=== PATIENT | male | born 1950 ===

== ENCOUNTER 2017-12-21 16:33 | Observation (INO) | payer MEDICAID, OTHER ==
[2017-12-21] MEDS ORDERED: Tdap Vaccine 0.5 ml Vial (10-64 yrs) IM ONE ×2 (17:06→18:35)
[2017-12-21] MEDS ORDERED: ceFAZolin 1 GM in Sodium Chloride 0.9% 100 ML IVPB ONE (17:06)
--- NOTE | 2017-12-21 17:11 | ED PDOC ---
Upper Extremity Pain/Injury Time Seen by Provider: 12/21/17 17:08 Chief Complaint (Nursing): Finger,Hand,&Wrist Chief Complaint (Provider): HAND INJURY History Per: Patient (67 Y/O MALE HERE FOR EVALUATION OF LEFT HAND INJURY THAT OCCURRED WHEN HE TRIPPED AND FELL EARLIER TODAY WHILE TRYING TO CATCH THE BUS. NOTES HE TRIPPED ON HAND WITH SIDE OF HEAD STRIKING EDGE OF GLASSES. NO LOC. IS NOT ON ANTICOAGULANTS. IS RIGHT HAND DOMINANT.) Past Medical History Reviewed: Historical Data, Nursing Documentation, Vital Signs Vital Signs: Last Vital Signs Temp 98.0 F 12/21/17 16:38 Pulse 99 H 12/21/17 16:38 Resp 20 12/21/17 16:38 BP 146/102 H 12/21/17 16:38 Pulse Ox 95 12/21/17 16:38 - Family History Family History: States: No Known Family Hx - Allergies Allergies/Adverse Reactions: Allergies Allergy/AdvReac Type Severity Reaction Status Date / Time No Known Allergies Allergy Verified 12/21/17 16:38 Review of Systems ROS Statement: Except As Marked, All Systems Reviewed And Found Negative Physical Exam - Reviewed Nursing Documentation Reviewed: Yes Vital Signs Reviewed: Yes - Physical Exam Appears: Positive for: Well, Non-toxic, No Acute Distress Head Exam: Positive for: ATRAUMATIC, NORMAL INSPECTION, NORMOCEPHALIC Skin: Positive for: Normal Color, Warm, DRY Eye Exam: Positive for: EOMI, Normal appearance, PERRL ENT: Positive for: Normal ENT Inspection Neck: Positive for: Normal, Painless ROM Cardiovascular/Chest: Positive for: Regular Rate, Rhythm Respiratory: Positive for: CNT, Normal Breath Sounds Gastrointestinal/Abdominal: Positive for: Normal Exam, Soft Back: Positive for: Normal Inspection Extremity: Positive for: Normal ROM, Other (DEEP 4.0 CM LACERATION NOTED ULNAR ASPECT OF LEFT HAND. ABLE TO FLEX AT DIP/PIP.) Neurologic/Psych: Positive for: Alert, Oriented - Laboratory Results Result Diagrams: 12/21/17 17:30 12/21/17 17:30 - ECG O2 Sat by Pulse Oximetry: 95 - Progress ED Course And Treament: ANCEF 1 GM IV X 1 DOSE; TDAP 0.5ML IM X 1 DOSE xry of hand: fx of proximal phalanx displaced. D/W DR. MARSHALL 17:48. PATIENT TO GO TO OR FOR REDUCTION/REPAIR. D/W HOSPITALIST DR DOOLEY FOR ADMISSION. d/w surgical brace maker. Disposition - Clinical Impression Clinical Impression: Open displaced fracture of proximal phalanx of finger of left hand - Patient ED Disposition Is Patient to be Admitted: Yes - Disposition Disposition Time: 17:54 Condition: FAIR - Pt Status Changed To: Hospital Disposition Of: Observation
[2017-12-21 17:41] LABS: BASO # 0.1 K/uL (0.0-0.2); EOS # 0.2 K/uL (0.0-0.7); EOS % 3.8 % (0.0-4.0); HEMOGLOBIN 14.2 g/dL (12.0-18.0); LYMPH # 1.6 K/uL (1.0-4.3); MEAN CELL VOLUME 84.5 fl (80.0-94.0); MEAN CORPUSCULAR HEMOGLOBIN 29.1 pg (27.0-31.0); MEAN CORPUSCULAR HGB CONC 34.5 g/dL (33.0-37.0); MEAN PLATELET VOLUME 7.9 fl (7.2-11.7); MONO # 0.7 K/uL (0.0-0.8); MONO % 11.5 % (0.0-10.0); NEUT # 3.5 K/uL (1.8-7.0); NEUT % 57.7 % (50.0-75.0); NRBC % 0.1 % (0.0-0.0); RBC 4.88 Mil/uL (4.40-5.90); RED CELL DISTRIBUTION WIDTH 13.9 % (11.5-14.5)
[2017-12-21 17:47] LABS: BLOOD UREA NITROGEN 16 mg/dl (9-20); CALCIUM 8.9 mg/dL (8.4-10.2); GFR AFRICAN-AMERICAN > 60; GFR NON-AFRICAN AMERICAN > 60
--- NOTE | 2017-12-21 18:07 | CT ---
PROCEDURE: CT HEAD WITHOUT CONTRAST. HISTORY: HEAD INJURY COMPARISON: None available. TECHNIQUE: Axial computed tomography images were obtained through the head/brain without intravenous contrast. Coronal and sagittal reconstructed images. Radiation dose: Total exam DLP = 776.81 mGy-cm. This CT exam was performed using one or more of the following dose reduction techniques: Automated exposure control, adjustment of the mA and/or kV according to patient size, and/or use of iterative reconstruction technique. FINDINGS: HEMORRHAGE: No intracranial hemorrhage. BRAIN: No mass effect or edema. No atrophy or chronic microvascular ischemic changes. Physiologic basal ganglia details lesions VENTRICLES: Unremarkable. No hydrocephalus. CALVARIUM: Unremarkable. PARANASAL SINUSES: Mild, chronic ethmoid air cell disease. MASTOID AIR CELLS: Unremarkable as visualized. No inflammatory changes. OTHER FINDINGS: None. IMPRESSION: No acute intracranial abnormalities. No significant findings to account for the clinical presentation.
[2017-12-21 18:09] LABS: INR 1.1 (0.9-1.2); PARTIAL THROMBOPLASTIN TIME 32.6 Seconds (25.6-37.1); PROTHROMBIN TIME 11.8 Seconds (9.8-13.1)
--- NOTE | 2017-12-21 18:13 | CP.PCM.HP ---
History of Present Illness - History of Present Illness History of Present Illness: 67 yo male with no significant PMH injured left hand when he tripped and fell trying to catch a bus around 4pm today. Patient sustained laceration proximal to the left 5th finger. There was no LOC. Present on Admission - Present on Admission Any Indicators Present on Admission: No History of DVT/PE: No History of Uncontrolled Diabetes: No Urinary Catheter: No Decubitus Ulcer Present: No Review of Systems - Review of Systems All systems: reviewed and no additional remarkable complaints except (aside from those mentioned above, 12 point system review were negative by me) Past Patient History - Tetanus Immunizations Tetanus Immunization: Unknown - Past Medical History & Family History Past Medical History?: No Past Family History: Reviewed and not pertinent Meds Allergies/Adverse Reactions: Allergies Allergy/AdvReac Type Severity Reaction Status Date / Time No Known Allergies Allergy Verified 12/21/17 16:38 Physical Exam - Constitutional Appears: No Acute Distress - Head Exam Head Exam: ATRAUMATIC - Eye Exam Eye Exam: absent: Scleral icterus - ENT Exam ENT Exam: Mucous Membranes Moist - Neck Exam Neck exam: Negative for: Meningismus - Respiratory Exam Respiratory Exam: absent: Rales, Rhonchi, Wheezes, Respiratory Distress - Cardiovascular Exam Cardiovascular Exam: REGULAR RHYTHM, +S1, +S2 - GI/Abdominal Exam GI & Abdominal Exam: Soft. absent: Tenderness - Rectal Exam Rectal Exam: Deferred - Extremities Exam Extremities exam: Negative for: normal inspection (left hand: large laceration just proximal to the 5th finger) - Back Exam Back exam: NORMAL INSPECTION - Neurological Exam Neurological exam: Alert, Oriented x3 - Psychiatric Exam Psychiatric exam: Normal Affect - Skin Skin Exam: Normal Color Results - Vital Signs Recent Vital Signs: Last Vital Signs Temp 98.0 F 12/21/17 16:38 Pulse 99 H 12/21/17 16:38 Resp 20 12/21/17 16:38 BP 146/102 H 12/21/17 16:38 Pulse Ox 95 12/21/17 17:54 - Labs Result Diagrams: 12/21/17 17:30 12/21/17 17:30 Labs: Laboratory Results - last 24 hr 12/21/17 12/21/17 12/21/17 17:30 17:30 17:30 WBC 6.0 RBC 4.88 Hgb 14.2 Hct 41.2 MCV 84.5 MCH 29.1 MCHC 34.5 RDW 13.9 Plt Count 257 MPV 7.9 Neut % (Auto) 57.7 Lymph % (Auto) 26.0 [place] % (Auto) 11.5 H Eos % (Auto) 3.8 Baso % (Auto) 1.0 Neut # (Auto) 3.5 Lymph # (Auto) 1.6 [place] # (Auto) 0.7 Eos # (Auto) 0.2 Baso # (Auto) 0.1 PT 11.8 INR 1.1 APTT 32.6 Sodium 143 Potassium 4.0 Chloride 104 Carbon Dioxide 24 Anion Gap 19 BUN 16 Creatinine 0.8 Est GFR ( Amer) > 60 Est GFR (Non-Af Amer) > 60 Random Glucose 100 Calcium 8.9 Assessment & Plan (1) Open displaced fracture of proximal phalanx of finger of left hand Status: Acute - Assessment and Plan (Free Text) Assessment: for ORIF today by Dr Murphy (called by ER) Ancef 1gm IV q8hrs IV hydration with NSS 100cc/hr Morphine 2mg IV q 4hrs prn
[2017-12-21] MEDS ORDERED: Morphine 4 MG/ML VIAL ONE (18:34)
--- NOTE | 2017-12-21 19:07 | CP.PCM.CON ---
History of Present Illness - History of Present Illness History of Present Illness: SURGERY CONSULT NOTE FOR DR. MARSHALL 67M presents after falling down on concrete while running for bus. He presents with laceration in the left hand and an open fracture. Fracture is located in the left 5th digit proximal phalanx. He states pain is mild and denies loss of sensation or motor function. Patient denies loss of consciousness, headache, chest pain, shortness of breath or pain anywhere else. PMH: denies PSH: denies Social: admits to 3 cigarretes/day, social alcohol use, denies illicit drugs Allergies: NKDA Past Patient History - Tetanus Immunizations Tetanus Immunization: Unknown - Past Medical History & Family History Past Medical History?: No Past Family History: Reviewed and not pertinent Meds Allergies/Adverse Reactions: Allergies Allergy/AdvReac Type Severity Reaction Status Date / Time No Known Allergies Allergy Verified 12/21/17 16:38 - Medications Medications: Current Medications Cefazolin Sodium 1 gm/ Sodium (Chloride) 100 mls @ 100 mls/hr IVPB Q12 MICHELLE PRN Reason: Protocol Morphine Sulfate (Morphine) 2 mg IVP Q4 PRN PRN Reason: Pain, moderate (4-7) Physical Exam - Constitutional Appears: Well, Non-toxic, No Acute Distress - Head Exam Head Exam: ATRAUMATIC - Eye Exam Eye Exam: EOMI, PERRL - ENT Exam ENT Exam: Mucous Membranes Moist - Respiratory Exam Respiratory Exam: Clear to Auscultation Bilateral, NORMAL BREATHING PATTERN - Cardiovascular Exam Cardiovascular Exam: REGULAR RHYTHM, +S1, +S2 - GI/Abdominal Exam GI & Abdominal Exam: Soft. absent: Distended, Firm, Guarding, Rebound, Rigid, Tenderness - Extremities Exam Additional comments: Laceration of palmar aspect of left hand in the proximal 5th digit measuring 3- 4cm. Open fracture in left hand - left 5th digit proximal phalanx - Neurological Exam Neurological exam: Alert, Oriented x3 - Psychiatric Exam Psychiatric exam: Normal Affect, Normal Mood - Skin Skin Exam: Dry, Intact, Normal Color, Warm Results - Vital Signs Recent Vital Signs: Last Vital Signs Temp 98.0 F 12/21/17 16:38 Pulse 99 H 12/21/17 16:38 Resp 20 12/21/17 16:38 BP 146/102 H 12/21/17 16:38 Pulse Ox 95 12/21/17 17:54 - Labs Result Diagrams: 12/21/17 17:30 12/21/17 17:30 Labs: Laboratory Results - last 24 hr 12/21/17 12/21/17 12/21/17 17:30 17:30 17:30 WBC 6.0 RBC 4.88 Hgb 14.2 Hct 41.2 MCV 84.5 MCH 29.1 MCHC 34.5 RDW 13.9 Plt Count 257 MPV 7.9 Neut % (Auto) 57.7 Lymph % (Auto) 26.0 Lane % (Auto) 11.5 H Eos % (Auto) 3.8 Baso % (Auto) 1.0 Neut # (Auto) 3.5 Lymph # (Auto) 1.6 Lane # (Auto) 0.7 Eos # (Auto) 0.2 Baso # (Auto) 0.1 PT 11.8 INR 1.1 APTT 32.6 Sodium 143 Potassium 4.0 Chloride 104 Carbon Dioxide 24 Anion Gap 19 BUN 16 Creatinine 0.8 Est GFR ( Amer) > 60 Est GFR (Non-Af Amer) > 60 Random Glucose 100 Calcium 8.9 Blood Type Antibody Screen BBK History Checked 12/21/17 17:30 WBC RBC Hgb Hct MCV MCH MCHC RDW Plt Count MPV Neut % (Auto) Lymph % (Auto) Lane % (Auto) Eos % (Auto) Baso % (Auto) Neut # (Auto) Lymph # (Auto) Lane # (Auto) Eos # (Auto) Baso # (Auto) PT INR APTT Sodium Potassium Chloride Carbon Dioxide Anion Gap BUN Creatinine Est GFR ( Amer) Est GFR (Non-Af Amer) Random Glucose Calcium Blood Type O POSITIVE Antibody Screen Negative BBK History Checked No verified bt Assessment & Plan - Assessment and Plan (Free Text) Assessment: 67M present s/p trauma with open fracture of left 5th digit proximal phalanx Plan: - Abx - Pain control - Plan for OR Further recs discuss with Dr. Jeffrey Olivarez, PGY2
[2017-12-21] MEDS: Morphine 4 MG/ML VIAL IVP PRN (20:43)
[2017-12-21] MEDS: ceFAZolin 1 GM in Sodium Chloride 0.9% 100 ML IVPB SCH (21:55)
[2017-12-21] MEDS: Dextrose 5%/0.9% NS 1,000 ML IV SCH (21:55)
[2017-12-22] MEDS: Morphine 4 MG/ML VIAL IVP PRN ×2 (03:42→13:56)
--- NOTE | 2017-12-22 07:59 | RAD ---
PROCEDURE: Left Hand Radiographs. HISTORY: HAND FRACTURE COMPARISON: None. FINDINGS: BONES: There is an oblique fracture through the mid diaphysis of the proximal phalanx left small finger with proximal distraction of the major distal fracture fragment and lateral angulation of the distal fragment. No dislocation or subluxation. No additional fracture throughout the left hand. Limited local soft tissue edema is seen at the fracture site. JOINTS: As above. SOFT TISSUES: As above. OTHER FINDINGS: None. IMPRESSION: Oblique teloscoped fracture proximal phalanx left small finger without dislocation.
[2017-12-22] MEDS: Dextrose 5%/0.9% NS 1,000 ML IV SCH (08:02)
[2017-12-22] MEDS: ceFAZolin 1 GM in Sodium Chloride 0.9% 100 ML IVPB SCH (08:09)
--- NOTE | 2017-12-22 08:23 | RAD ---
PROCEDURE: CHEST RADIOGRAPH, 1 VIEW HISTORY: pre-op COMPARISON: None available. FINDINGS: LUNGS: No definite infiltrates are identified bilaterally. PLEURA: No pneumothorax or pleural fluid seen. CARDIOVASCULAR: Cardiac size appears upper limits normal. There is mild pulmonary vascular congestion suspected. OSSEOUS STRUCTURES: No significant abnormalities. VISUALIZED UPPER ABDOMEN: Normal. OTHER FINDINGS: None. IMPRESSION: Borderline CHF. No acute infiltrates or pleural effusion bilaterally.
[2017-12-22] MEDS ORDERED: Propofol 10 mg/ml Inj (20 ML) ONE (08:35)
[2017-12-22] MEDS ORDERED: Midazolam 2 MG/2 ML VIAL ONE ×2 (08:35→09:14)
[2017-12-22] MEDS ORDERED: Bacitracin Ointment 30 GM TUBE ONE (08:38)
[2017-12-22] MEDS: Lidocaine 2% Inj (20ml) ONE ×2 (08:40→09:40)
[2017-12-22] MEDS: Bupivacaine HCl 0.25% PF (30 ml) Inj ONE ×2 (08:40→09:40)
[2017-12-22] MEDS ORDERED: Lactated Ringer's 1,000 ML IV ONE (10:05)
[2017-12-22] MEDS ORDERED: HYDROmorphone 0.5 mg/0.5 ml ISec IVP PRN (10:06)
[2017-12-22 11:12] VITALS: O2SAT 97
[2017-12-22 11:37] VITALS: TEMP 97.5
--- NOTE | 2017-12-22 11:39 | CP.PCM.DIS ---
Provider - Provider Date of Admission: 12/21/17 17:50 Attending physician: Austin Trent MD Consults: Hand Surgery : Dr Adeel Murphy Time Spent in preparation of Discharge (in minutes): 25 Diagnosis - Discharge Diagnosis (1) Open displaced fracture of proximal phalanx of finger of left hand Status: Acute (2) S/P ORIF (open reduction internal fixation) fracture Status: Acute Hospital Course - Lab Results Lab Results: Most Recent Lab Values WBC 6.0 K/uL (4.8-10.8) 12/21/17 17:30 RBC 4.88 Mil/uL (4.40-5.90) 12/21/17 17:30 Hgb 14.2 g/dL (12.0-18.0) 12/21/17 17:30 Hct 41.2 % (35.0-51.0) 12/21/17 17:30 MCV 84.5 fl (80.0-94.0) 12/21/17 17:30 MCH 29.1 pg (27.0-31.0) 12/21/17 17:30 MCHC 34.5 g/dL (33.0-37.0) 12/21/17 17:30 RDW 13.9 % (11.5-14.5) 12/21/17 17:30 Plt Count 257 K/uL (130-400) 12/21/17 17:30 MPV 7.9 fl (7.2-11.7) 12/21/17 17:30 Neut % (Auto) 57.7 % (50.0-75.0) 12/21/17 17:30 Lymph % (Auto) 26.0 % (20.0-40.0) 12/21/17 17:30 [place] % (Auto) 11.5 % (0.0-10.0) H 12/21/17 17:30 Eos % (Auto) 3.8 % (0.0-4.0) 12/21/17 17:30 Baso % (Auto) 1.0 % (0.0-2.0) 12/21/17 17:30 Neut # (Auto) 3.5 K/uL (1.8-7.0) 12/21/17 17:30 Lymph # (Auto) 1.6 K/uL (1.0-4.3) 12/21/17 17:30 [place] # (Auto) 0.7 K/uL (0.0-0.8) 12/21/17 17:30 Eos # (Auto) 0.2 K/uL (0.0-0.7) 12/21/17 17:30 Baso # (Auto) 0.1 K/uL (0.0-0.2) 12/21/17 17:30 PT 11.8 Seconds (9.8-13.1) 12/21/17 17:30 INR 1.1 (0.9-1.2) 12/21/17 17:30 APTT 32.6 Seconds (25.6-37.1) 12/21/17 17:30 Sodium 143 mmol/l (132-148) 12/21/17 17:30 Potassium 4.0 MMOL/L (3.6-5.0) 12/21/17 17:30 Chloride 104 mmol/L (98-107) 12/21/17 17:30 Carbon Dioxide 24 mmol/L (22-30) 12/21/17 17:30 Anion Gap 19 (10-20) 12/21/17 17:30 BUN 16 mg/dl (9-20) 12/21/17 17:30 Creatinine 0.8 mg/dl (0.8-1.5) 12/21/17 17:30 Est GFR ( Amer) > 60 12/21/17 17:30 Est GFR (Non-Af Amer) > 60 12/21/17 17:30 Random Glucose 100 mg/dL (75-110) 12/21/17 17:30 Calcium 8.9 mg/dL (8.4-10.2) 12/21/17 17:30 Blood Type O POSITIVE 12/21/17 17:30 Antibody Screen Negative 12/21/17 17:30 BBK History Checked No verified bt 12/21/17 17:30 - Hospital Course Hospital Course: 67 yo male with no significant PMH, injured his left hand when he tripped and fell trying to catch a bus . Patient sustained fracture and laceration proximal to the left 5th finger. There was no head trauma. Denies pain in any part of his body Hand Xray:Oblique teloscoped fracture proximal phalanx left small finger without dislocation. CT of Head: negative. 1. Open Fracture Left 5th digit s/p ORIF with K Wire - Hand Surgery consulted: Dr Murphy - Pain mgt - keep left hand elevated to decrease swelling - will d/c pt home - pt to ff up with Dr Murphy as outpt - Keflex PO Discharge Exam - Head Exam Head Exam: ATRAUMATIC, NORMAL INSPECTION, NORMOCEPHALIC - Eye Exam Eye Exam: EOMI, Normal appearance, PERRL Pupil Exam: NORMAL ACCOMODATION - ENT Exam ENT Exam: Mucous Membranes Moist, Normal External Ear Exam - Neck Exam Neck exam: Full Rom - Respiratory Exam Respiratory Exam: NORMAL BREATHING PATTERN. absent: Respiratory Distress - Cardiovascular Exam Cardiovascular Exam: REGULAR RHYTHM, +S1, +S2 - GI/Abdominal Exam GI & Abdominal Exam: Normal Bowel Sounds, Soft. absent: Tenderness - Extremities Exam Extremities exam: full ROM, normal capillary refill, pedal pulses present Additional comments: left hand with dressing - Back Exam Back exam: FULL ROM. absent: CVA tenderness (L), CVA tenderness (R), vertebral tenderness - Neurological Exam Neurological exam: Alert, CN II-XII Intact, Normal Gait, Oriented x3, Reflexes Normal - Psychiatric Exam Psychiatric exam: Normal Affect, Normal Mood - Skin Skin Exam: Dry, Normal Color, Warm Discharge Plan - Discharge Medications Prescriptions: Cephalexin [Keflex] 500 mg PO TID #1 capsule Oxycodone HCl/Acetaminophen [Percocet 10-325 mg Tablet] 1 each PO Q4 PRN #1 tablet PRN Reason: Pain, Moderate (4-7) - Follow Up Plan Condition: GOOD Disposition: HOME/ ROUTINE Instructions: Finger Fracture (DC) Additional Instructions: ff up [facility] in 1-[address] Murphy in 1 wk Keep splint on. Take pain med as needed. Referrals: [facility] [Outside] Adeel Murphy MD [Staff Provider] -
--- NOTE | 2017-12-22 13:49 | PCM.SURG1 ---
Surgeon's Initial Post Op Note - Surgeon's Notes Surgeon: Dr. Murphy Fire Equipment Repairer Inspector: Dania Dawson PGY2 Type of Anesthesia: Block Regional, IV Sedation Pre-Operative Diagnosis: L 5th digit fracture Operative Findings: 4x1cm laceration of L 5th digit. 5th digit fracture. Post-Operative Diagnosis: Same Operation Performed: Open reduction and fixation with K wire. Specimen/Specimens Removed: None Estimated Blood Loss: EBL {In ML}: 20 Blood Products Given: N/A Drains Used: No Drains Post-Op Condition: Good Date of Surgery/Procedure: 12/22/17 Time of Surgery/Procedure: 13:57
[2017-12-22 14:09] VITALS: BP 119/64; PULSE 20; RESP 65
--- NOTE | 2017-12-25 12:13 | CARD ---
APPROVED REPORT EKG Measurement Heart [id number] <Conclusion> Normal sinus rhythm Normal ECG
--- NOTE | 2018-01-08 08:31 | OP ---
PGUROCEDURE DATE: 12/22/2017 LOCATION: [facility]. PREOPERATIVE DIAGNOSES: 1. Open fracture proximal phalanx left fifth finger. 2. Compact open wound of left fifth finger. POSTOPERATIVE DIAGNOSES: 1. Open fracture proximal phalanx left fifth finger. 2. Compact open wound of left fifth finger. PROCEDURE: 1. Management of proximal phalangeal fracture. 2. Insertion of K-wire proximal phalanx. 3. Repair of complex laceration of finger. SURGEON: Adeel Murphy MD INFORMATION TECHNOLOGY MANAGER: Dania Dawson DO CLINICAL NOTE: This 67-year-old male presented to the [facility] Emergency Room on 12/21/2017 after falling and crushing the little finger of his left hand. This was essentially injury, which cause in an extremely erratic and complex manner. On x-ray, the patient had displaced fracture of proximal phalanx. On examination, there was also a complex skin laceration of approximately 3 cm overlying the volar aspect of the proximal phalanx and extending into the . Because management of this injury of the Emergency Room Department, a Plastic Surgery consult was called. The nature of the injury and proposed repair was outlined to the patient. Informed consent outlining the potential risks of failure and complications related to the proposed surgical repair was obtained prior to repair of this injury. No guarantee of outcome was provided to the patient. DESCRIPTION OF PROCEDURE: The patient was commenced on intravenous antibiotics prior to surgery. The patient was taken to the operating room as an emergency in the morning following admission. After sedation was induced, local anesthesia was obtained with digital ring block using lidocaine . After an adequate level of anesthesia was obtained, the open wound of the volar surface of the finger fracture site was thoroughly irrigated and areas of skin debrided as necessary. The fracture of the proximal phalanx was then examined under fluoroscopy. The distal segment of the phalanx and volar within the proximal phalanx and displaced the flexor tendon. The wound was extended to allow thorough examination of the fracture site. of the finger of the distal fracture segment was reduced and repositioned. The flexor tendons were examined and found to be intact. Under fluoroscopy, a K-wire was inserted longitudinally through the fracture site. The open skin wounds were then reapproximated and repaired with multiple sutures of 4-0 Prolene and 5-0 catgut. The finger was splinted with an ulnar gutter splint to protect the fracture site of the proximal phalanx. The wounds were then dressed in the usual manner and the patient was given discharge instructions to follow up in the office within the week and not to remove the dressing or the splint. He was also given a prescription for Percocet for pain relief and Keflex for antibiotic coverage. Adeel Murphy MD
== END 2017-12-22 14:32 | disposition home or self-care (01) ==
LOC: H.ER 16:33 → H.ERHOLD 17:50 → INTOOBSV 17:50 → H.MEDSURG1 20:24
DX: S62.617B Displaced fracture of proximal phalanx of left little finger, initial encounter for open fracture (principal); W01.110A Fall on same level from slipping, tripping and stumbling with subsequent striking against sharp glass, initial encounter; Z23 Encounter for immunization; Y93.02 Activity, running; Y92.480 Sidewalk as the place of occurrence of the external cause
CPT/HCPCS: 13132; 26735; 70450; 71045; 73130; 80048; 85025; 85610; 85730; 86850; 86900; 90471; 90715; 93005; 96365; 96366; 96375; 96376; 99284; G0378; J0690; J2001; J2250; J2270; J2704; J3010; J7030; J7042; J7120

== ENCOUNTER 2017-12-24 11:52 | Emergency (ER) | payer MEDICAID, OTHER ==
[2017-12-24 12:02] VITALS: O2SAT 99
[2017-12-24 12:03] VITALS: BMI 28.4
--- NOTE | 2017-12-24 12:48 | ED PDOC ---
Upper Extremity Pain/Injury Time Seen by Provider: 12/24/17 12:17 Chief Complaint (Nursing): Finger,Hand,&Wrist Chief Complaint (Provider): Left Hand Swelling History Per: Patient History/Exam Limitations: no limitations Onset/Duration Of Symptoms: Days (x2) Current Symptoms Are (Timing): Still Present Additional Complaint(s): 67 y/o right hand dominant male with no significant pmhx, who presents to the ED for evaluation of left hand swelling x2 days. Patient reports he had an open fracture of the proximal 5th phalange and went to the OR with Dr. Muprhy 3 days ago. Patient is currently reporting minimal pain. PMD: None provided Past Medical History Reviewed: Historical Data Vital Signs: Last Vital Signs Temp 97 F L 12/24/17 12:02 Pulse 70 12/24/17 12:02 Resp 16 12/24/17 12:08 BP 150/87 12/24/17 12:02 Pulse Ox 99 12/24/17 12:02 - Medical History PMH: No Chronic Diseases Denies: Chronic Kidney Disease - Surgical History Other surgeries: Left 5th finger fracture - Family History Family History: States: Unknown Family Hx - Home Medications Home Medications: Ambulatory Orders Medication Instructions Recorded Cephalexin [Keflex] 500 mg PO TID #1 capsule 12/22/17 Oxycodone HCl/Acetaminophen 1 each PO Q4 PRN #1 tablet 12/22/17 [Percocet 10-325 mg Tablet] - Allergies Allergies/Adverse Reactions: Allergies Allergy/AdvReac Type Severity Reaction Status Date / Time No Known Allergies Allergy Verified 12/24/17 12:08 Review of Systems ROS Statement: Except As Marked, All Systems Reviewed And Found Negative Musculoskeletal: Positive for: Hand Pain (left) Physical Exam - Reviewed Nursing Documentation Reviewed: Yes Vital Signs Reviewed: Yes - Physical Exam Appears: Positive for: Non-toxic, No Acute Distress Head Exam: Positive for: ATRAUMATIC, NORMAL INSPECTION, NORMOCEPHALIC Skin: Positive for: Normal Color Eye Exam: Positive for: Normal appearance Neck: Positive for: Normal, Painless ROM Respiratory: Negative for: Respiratory Distress Extremity: Positive for: Capillary Refill (less than 2 seconds), Swelling (1st, 2nd, 3rd digits of left hand), Other (left hand splint kept in place, sensation intact to left hand) Neurologic/Psych: Positive for: Alert. Negative for: Motor/Sensory Deficits - ECG O2 Sat by Pulse Oximetry: 99 (RA) Pulse Ox Interpretation: Normal Medical Decision Making Medical Decision Makin:[address] Murphy who said Dr. Dawson, certified surgical tech/first assistant, will come see the patient. Called Dr. Dawson who reported she will come see the patient after she finishes seeing her current patient. PT was seen and examined by Dr. Dawson. Pts splint replaced and sling given. Scribe Attestation: Documented by Dennis Fuentes, acting as a scribe for Samantha Hayden PA-C. Provider Scribe Attestation: All medical record entries made by the Scribe were at my direction and personally dictated by me. I have reviewed the chart and agree that the record accurately reflects my personal performance of the history, physical exam, medical decision making, and the department course for this patient. I have also personally directed, reviewed, and agree with the discharge instructions and disposition. Disposition - Clinical Impression Clinical Impression: Hand swelling - Patient ED Disposition Is Patient to be Admitted: No - Disposition Referrals: Adeel Murphy MD [Staff Provider] - Disposition: Routine/Home Disposition Time: 13:30 Condition: STABLE Additional Instructions: Please follow-up with Dr. Murphy. Instructions: Swelling Forms: [facility] (Syriac)
[2017-12-24 13:43] VITALS: BP 135/82; PULSE 65; RESP 15; TEMP 98.2
--- NOTE | 2017-12-24 14:13 | CP.PCM.PN ---
Subjective - Date & Time of Evaluation Date of Evaluation: 12/24/17 Time of Evaluation: 14:08 - Subjective Subjective: 67M who underwent ORIF of left hand fifth digit proximal phalanx open fracture on 12/[address] Murphy seen in ED complaining of discomfort to his hand. He states that the discomfort has been bothering him for about one day and describes it as a pulsing sensation more than pain. He says that his pain is well controlled and is only a 4/10 today. He denies elevating his hand over the last 24 hours. Denies any recent trauma to the hand since surgery. Patient is AAO x 3 and NAD at time of examination. Denies any further complaints. Denies any tingling or numbness to his left hand or digits. Denies any further complaints at this time. Denies any recent N/V/F/C/CP/SOB/D Objective - Vital Signs/Intake and Output Vital Signs (last 24 hours): Temp Pulse Resp BP Pulse Ox 98.2 F 65 15 135/82 99 12/24/17 13:41 12/24/17 13:41 12/24/17 13:41 12/24/17 13:41 12/24/17 13:41 - Constitutional Appears: Well, Non-toxic, No Acute Distress - Head Exam Head Exam: ATRAUMATIC, NORMOCEPHALIC - Respiratory Exam Respiratory Exam: NORMAL BREATHING PATTERN. absent: Respiratory Distress - Extremities Exam Additional comments: Finger splint on left hand noted to be C/D/I Pulses to hand 2/4 CFT < 3 seconds Skin temperature warm WNL Epicritic and protective sensation intact Assessment and Plan - Assessment and Plan (Free Text) Assessment: 67M who underwent ORIF of left hand fifth digit proximal phalanx open fracture on 12/[address] Murphy seen in ED for tight dressing causing discomfort to his hand Plan: Coban removed from patient's dressing and replaced with RAULITO wrap Pt instructed to elevate hand if pulsing sensation continues Patient instructed to return to ED if he experiences any tingling or numbness to digits or if he notices skin color/temperature changes Patient to f/u with Dr. Murphy at his regularly scheduled appointment
== END 2017-12-24 13:41 | disposition home or self-care (01) ==
LOC: H.ER 11:52
DX: R22.32 Localized swelling, mass and lump, left upper limb (principal)

== ENCOUNTER 2018-11-18 10:36 | Emergency (ER) | payer SELFPAY ==
[2018-11-18 11:05] VITALS: O2SAT 99; BMI 29.0
[2018-11-18] MEDS ORDERED: Oxycodone/Acetaminophen 5/325 mg Tab PO STA (11:37)
[2018-11-18] MEDS ORDERED: Oxycodone/Acetaminophen 5/325 mg Tab ONE (11:43)
--- NOTE | 2018-11-18 11:56 | ED PDOC ---
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 Patient states he was using a small d rill when he accidentally sustained a laceration with it. Tetanus is up to date. He denies any fever, chills or other possible injuries. PMD: None provided. Past Medical History Reviewed: Historical Data, Nursing Documentation, Vital Signs Vital Signs: Last Vital Signs Temp 98.5 F 11/18/18 11:05 Pulse 72 11/18/18 11:05 Resp 18 11/18/18 11:05 BP 144/72 11/18/18 11:05 Pulse Ox 99 11/18/18 11:05 - Medical History PMH: No Chronic Diseases Denies: Chronic Kidney Disease - Surgical History Surgical History: No Surg Hx - Family History Family History: States: Unknown Family Hx - Social History Current smoker - smoking cessation education provided: Yes (light smoker <10 cigarettes) Alcohol: None Drugs: Denies - Home Medications Home Medications: Ambulatory Orders Medication Instructions Recorded Cephalexin [Keflex] 500 mg PO TID #1 capsule 12/22/17 Oxycodone HCl/Acetaminophen 1 each PO Q4 PRN #1 tablet 12/22/17 [Percocet 10-325 mg Tablet] Acetaminophen with Codeine 1 tab PO Q6H PRN #10 tab 11/18/18 [Tylenol with Codeine No. 3 300 mg-30 mg] Cephalexin [cephalexin] 500 mg PO QID #39 cap 11/18/18 Naproxen [Naprosyn] 500 mg PO BID PRN #15 tablet 11/18/18 - Allergies Allergies/Adverse Reactions: Allergies Allergy/AdvReac Type Severity Reaction Status Date / Time No Known Allergies Allergy Verified 11/18/18 11:27 Review of Systems ROS Statement: Except As Marked, All Systems Reviewed And Found Negative Constitutional: Negative for: Fever, Chills Skin: Positive for: Other (left finger laceration) Physical Exam - Reviewed Nursing Documentation Reviewed: Yes Vital Signs Reviewed: Yes - Physical Exam Appears: Positive for: No Acute Distress Head Exam: Positive for: ATRAUMATIC, NORMAL INSPECTION, NORMOCEPHALIC Skin: Positive for: Normal Color, Warm, Dry Eye Exam: Positive for: Normal appearance, EOMI, PERRL Neck: Positive for: Normal, Painless ROM Extremity: Positive for: Normal ROM (upper extremities), Other (Left 2nd digit with a 2cm laceration, distal to nail bed and horizontal to lateral finger). Negative for: Deformity Neurological/Psych: Positive for: Awake, Alert, Normal Tone. Negative for: Motor/Sensory Deficits - ECG O2 Sat by Pulse Oximetry: 99 (RA) Pulse Ox Interpretation: Normal Medical Decision Making Medical Decision Making: Time: 11:28 Initial Impression: Left hand laceration Initial Plan: --Oxycodone 1 tab PO --Hand left 3 views routine [RAD] --Reevaluation 12:[address] Lei who reviewed images, recommends close approximation with sutures, antibiotics, aluminum splint and follow-up in office. Scribe Attestation: Documented by Stanford Willis, acting as a scribe Chava Singh MD Provider Scribe Attestation: All medical record entries made by the Scribe were at my direction and personally dictated by me. I have reviewed the chart and agree that the record accurately reflects my personal performance of the history, physical exam, medical decision making, and the department course for this patient. I have also personally directed, reviewed, and agree with the discharge instructions and disposition. Disposition - Clinical Impression Clinical Impression: Open fracture of finger - Disposition Referrals: Sofy Parry MD [Staff Provider] - Disposition: Routine/Home Disposition Time: 14:51 Condition: STABLE Additional Instructions: FOLLOW-UP WITH DR. LEI FOR REEVALUATION. Prescriptions: Acetaminophen with Codeine [Tylenol with Codeine No. 3 300 mg-30 mg] 1 tab PO Q6H PRN #10 tab PRN Reason: Pain, Severe (8-10) Cephalexin [cephalexin] 500 mg PO QID #39 cap Naproxen [Naprosyn] 500 mg PO BID PRN #15 tablet PRN Reason: Pain, Moderate (4-7) Instructions: Finger Fracture Forms: [employer] (Arabic) Print Language: TAMAZIGHT Laceration - Laceration Repair No standard instances Wound Length (In cm): 24 in Description Of Wound: Linear Wound Cleansed With: Sterile Saline Anesthesia: Lidocaine 1% (Digital block) Wound Examination: Irrigated With Saline Wound Closure: Suture (Loose sutures) Suture Technique And Material Used: Interrupted Wound Complexity: Simple
--- NOTE | 2018-11-18 12:10 | RAD ---
PROCEDURE: Left Hand Radiographs. HISTORY: Laceration COMPARISON: 12/21/2017. TECHNIQUE: 3 views obtained. FINDINGS: BONES: There is diffuse bone demineralization. There is no acute displaced fracture or bone destruction. Bone alignment is normal. There is an old fracture deformity in the base of the proximal phalanx of the little finger. JOINTS: Normal. No osteoarthritic changes. SOFT TISSUES: Normal. OTHER FINDINGS: None. IMPRESSION: No acute displaced fracture or dislocation.
[2018-11-18] MEDS ORDERED: ceFAZolin 1 GM in Sodium Chloride 0.9% 100 ML IVPB STA (12:24)
[2018-11-18] MEDS ORDERED: Lidocaine Hydrochloride 1% 10 ML ONE (13:12)
[2018-11-18 15:54] VITALS: BP 138/70; PULSE 77; RESP 17; TEMP 97.8
== END 2018-11-18 15:53 | disposition home or self-care (01) ==
LOC: H.ER 10:36
DX: S62.621B Displaced fracture of middle phalanx of left index finger, initial encounter for open fracture (principal); W26.8XXA Contact with other sharp object(s), not elsewhere classified, initial encounter; Y92.89 Other specified places as the place of occurrence of the external cause
CPT/HCPCS: 12001; 29130; 73130; 99284; J0690